=== PATIENT | female | born 1960 | race Caucasian/White ===

== ENCOUNTER → 2018-10-09 | Day surgery (SDC) | payer OTHER ==
--- NOTE | 2018-10-12 19:34 | OP ---
DATE OF OPERATION: 10/09/2018 PREOPERATIVE DIAGNOSIS: Right breast complex cyst, 10 o'clock, 4 cm from the nipple. POSTOPERATIVE DIAGNOSIS: Right breast complex cyst, 10 o'clock, 4 cm from the nipple. PROCEDURE: Right ultrasound guided cyst aspiration. ANESTHESIA: Local. ATTENDING SURGEON: Leslie Branch M.D. ESTIMATED BLOOD LOSS: Minimal. COMPLICATIONS: None. DESCRIPTION OF PROCEDURE: The patient was made aware of the risks and benefits of the procedure and consented. Under sterile conditions with 1% lidocaine for local anesthesia, an 18-gauge needle was able to aspirate a small amount of very thick rand-like material. This partially decompressed the cyst with no residual nodularity. Well tolerated by patient. Sterile dressing applied. Specimen not submitted to pathology since it was nonbloody and clinically benign. LESLIE BRANCH M.D. MEENU/[id number]
== END | disposition home or self-care (01) ==
LOC: FRADUS-SUR 12:49
PROVIDERS: ATTEND Surgery Surgical Oncology
PROC: BH40ZZZ Ultrasonography of Right Breast (ICD-10-PCS; principal; 2018-10-09)
PROC: 0H9T3ZX Drainage of Right Breast, Percutaneous Approach, Diagnostic (ICD-10-PCS; 2018-10-09)
DX: N60.01 Solitary cyst of right breast (principal)
CPT/HCPCS: 76942-TC